=== PATIENT | female | born 1965 | race Two or more races ===

== ENCOUNTER 2024-06-08 10:22 | Emergency (ER) | payer MEDICAID, OTHER ==
[~2024-06-08] VITALS: Ht 160 cm; Wt 61.4 kg
[2024-06-08 11:12] VITALS: BP 128/90; PULSE 80; RESP 16; TEMP 97.8; O2SAT 100
[2024-06-08] MEDS ORDERED: METH4PAK PO (11:50)
[2024-06-08] MEDS ORDERED: CEPH500C PO (11:50)
== END 2024-06-08 11:56 | disposition home or self-care (01) ==
LOC: ER 10:22
DX: L30.9 Dermatitis, unspecified (principal); Z88.0 Allergy status to penicillin; Z79.52 Long term (current) use of systemic steroids